=== PATIENT | female | born 1970 | race American Indian/Alaskan Native ===

== ENCOUNTER 2018-05-30 19:56 | Observation (INO) | payer OTHER ==
[2018-05-30] MEDS ORDERED: ASPIRIN PO ONE (20:08)
[2018-05-30] MEDS ORDERED: NACL 0.9% 500 ML 500 ML IV ONE (20:43)
[2018-05-30] MEDS ORDERED: NITROSTAT SL PRN (20:43)
[2018-05-30] MEDS ORDERED: PEPCID IV ONE (20:43)
[2018-05-30] MEDS ORDERED: CARAFATE PO ONE (20:43)
--- NOTE | 2018-05-30 20:44 | Emergency Department Report ---
ED Chest Pain HPI - General Chief Complaint: Chest Pain Stated Complaint: CHEST AND BACK PAIN WEAKNESS NAUSEA Time Seen by Provider: 05/30/18 20:32 Source: patient, RN notes reviewed Mode of arrival: Ambulatory Limitations: No Limitations - History of Present Illness Initial Comments: Primary care Dr.: Dr. Garcia This is a 57-year-old female with a history of hypertension, high cholesterol, on chronic aspirin therapy. The patient presents to the emergency room with a complaint of nontraumatic back pressure, pain, reported nausea, shortness of merary ath, with no vomiting, no diaphoresis, questionable chest pressure, tingling. The symptoms have been present for approximately 6 hours. They're intermittent. They do not radiate anywhere. He did not have exacerbating or relieving factors. No recent cardiac stress test. Patient had chest twitching, pain earlier on this month, saw her primary care doctor about it, was referred to outpatient cardiology but did not follow-up. The patient reports that she is not . The patient reports no DVT or pulmonary embolus risk factors. She was told last month by her primary care doctor that she had a "normal" EKG. MD Complaint: chest pain, other -: Gradual Onset: during rest Pain Location: other Pain Radiation: none Quality: aching, heaviness, sharp Consistency: intermittent Improves With: nothing Worsens With: nothing Aspirin use within the Past 7 Days: (1) Yes - Related Data On Oral Contraceptives: No Allergies Allergy/AdvReac Type Severity Reaction Status Date / Time No Known Allergies Allergy Verified 09/17/15 03:37 Heart Score - HEART Score History: Moderately suspicious EKG: Non-specific Age: 45-65 Risk factors: > 3 risk factors or hx of atherosclerotic disease Troponin: < normal limit HEART Score: 5 - Critical Actions Critical Actions: 4-6 pts:12-16.6% risk of adverse cardiac event. Should be admitted ED Review of Systems ROS: Stated complaint: CHEST AND BACK PAIN WEAKNESS NAUSEA Other details as noted in HPI Constitutional: malaise, weakness. denies: fever Eyes: denies: vision change ENT: denies: ear pain Respiratory: denies: cough Cardiovascular: chest pain Gastrointestinal: nausea Musculoskeletal: back pain Skin: denies: lesions Neurological: weakness Psychiatric: anxiety ED Past Medical Hx - Past Medical History Previous Medical History?: Yes Hx Hypertension: Yes Additional medical history: Elevated Cholesterol - Surgical History Past Surgical History?: No - Social History Smoking Status: Never Smoker ED Physical Exam - General Limitations: No Limitations General appearance: alert, anxious, obese - Head Head exam: Present: atraumatic, normocephalic - Eye Eye exam: Present: normal appearance, EOMI - ENT ENT exam: Present: normal exam, normal orophraynx, mucous membranes moist, normal external ear exam - Neck Neck exam: Present: normal inspection, full ROM. Absent: tenderness, meningismus - Respiratory Respiratory exam: Present: normal lung sounds bilaterally. Absent: respiratory distress - Cardiovascular Cardiovascular Exam: Present: regular rate, normal rhythm, normal heart sounds. Absent: bradycardia, tachycardia, irregular rhythm, systolic murmur, diastolic murmur, rubs, gallop - GI/Abdominal GI/Abdominal exam: Present: soft. Absent: distended, tenderness, guarding, rebound, rigid, pulsatile mass - Extremities Exam Extremities exam: Present: normal inspection, full ROM, other (2+ pulses noted in the bilateral upper, lower extremities. Compartments soft. No long bony tenderness. The pelvis is stable.). Absent: pedal edema, joint swelling, calf tenderness - Back Exam Back exam: Present: normal inspection, full ROM. Absent: tenderness, CVA te nderness (R), paraspinal tenderness, vertebral tenderness - Neurological Exam Neurological exam: Present: alert, other (Extraocular movements intact. Tongue midline. No facial droop. Facial sensation intact to light touch in the V1, V2, V3 distribution bilaterally. 5 and 5 strength in 4 extremities.. Sensation is intact to light touch in 4 extremities.). Absent: motor sensory deficit - Psychiatric Psychiatric exam: Present: anxious - Skin Skin exam: Present: warm, dry, intact, normal color. Absent: rash ED Course Vital Signs 05/30/18 05/30/18 05/30/18 20:04 20:26 20:30 Temperature 98.4 F Pulse Rate 82 89 Respiratory 18 20 Rate Blood Pressure 160/87 141/78 O2 Sat by Pulse 98 99 Oximetry 05/30/18 20:31 Temperature Pulse Rate Respiratory 20 Rate Blood Pressure O2 Sat by Pulse Oximetry - Reevaluation(s) Reevaluation #1: 05/30/18 21:38 Differential diagnosis, including a not limited to: GERD, gastritis, hiatal hernia, pneumonia, acute coronary syndrome, pulmonary embolus 05/30/18 21:38 Assessment and plan: 47-year-old female with back pain, nausea, shortness of breath, chest discomfort, abnormal EKG, reports normal EKG last month, no pulmonary embolus or DVT risk factors, low risk by well's criteria, perc negative with elevated d-dimer. Patient also moderate risk for major adverse cardiac events as per the heart score. We will obtain CT scan of the chest to exclude pulmonary embolus. X-ray of the chest is negative for acute disease. Clinically doubt aortic disease, has equal pulses in upper, lower extremities. Patient felt improved after initial therapy. She verbalized understanding to recommendation for admission to the hospital to complete a cardiac risk stratification, if CT scan of the chest does not show any acute process. Reevaluation #2: 05/30/18 23:05 CT scan of the chest is negative for pulmonary embolus, acute significant findings. Case is presented to the Hospital physician, Dr. Serge Alejandro, who has accepted the patient to the medical service. OSCAR score - Oscar Score Age > 65: (0) No Aspirin use within the Past 7 Days: (1) Yes 3 or more CAD Risk Factors: (1) Yes 2 or more Angina events in past 24 hrs: (1) Yes Known CAD with more than 50% Stenosis: (0) No Elevated Cardiac Markers: (0) No ST Deviation Greater than 0.5mm: (0) No OSCAR Score: 3 ED Medical Decision Making - Lab Data Result diagrams: 05/30/18 20:44 05/30/18 20:44 Vital Signs 05/30/18 05/30/18 05/30/18 20:04 20:26 20:30 Temperature 98.4 F Pulse Rate 82 89 Respiratory 18 20 Rate Blood Pressure 160/87 141/78 O2 Sat by Pulse 98 99 Oximetry 05/30/18 20:31 Temperature Pulse Rate Respiratory 20 Rate Blood Pressure O2 Sat by Pulse Oximetry Lab Results 05/30/18 05/30/18 05/30/18 Range/Units 20:44 20:44 20:44 WBC 6.1 (4.5-11.0) K/mm3 RBC 4.39 (3.65-5.03) M/mm3 Hgb 11.7 (10.1-14.3) gm/dl Hct 35.5 (30.3-42.9) % MCV 81 (79-97) fl MCH 27 L (28-32) pg MCHC 33 (30-34) % RDW 16.1 H (13.2-15.2) % Plt Count 253 (140-440) K/mm3 Lymph % (Auto) 32.2 (13.4-35.0) % [place] % (Auto) 9.2 H (0.0-7.3) % Eos % (Auto) 1.6 (0.0-4.3) % Baso % (Auto) 0.9 (0.0-1.8) % Lymph # 2.0 (1.2-5.4) K/mm3 [place] # 0.6 (0.0-0.8) K/mm3 Eos # 0.1 (0.0-0.4) K/mm3 Baso # 0.1 (0.0-0.1) K/mm3 Seg Neutrophils % 56.1 (40.0-70.0) % Seg Neutrophils # 3.4 (1.8-7.7) K/mm3 PT 12.3 (12.2-14.9) Sec. INR 0.87 (0.87-1.13) APTT 26.5 (24.2-36.6) Sec. D-Dimer 266.30 H (0-234) ng/mlDDU Sodium 142 (137-145) mmol/L Potassium 3.9 (3.6-5.0) mmol/L Chloride 104.4 (98-107) mmol/L Carbon Dioxide 28 (22-30) mmol/L Anion Gap 14 mmol/L BUN 14 (7-17) mg/dL Creatinine 0.7 (0.7-1.2) mg/dL Estimated GFR > 60 ml/min BUN/Creatinine Ratio 20 % Glucose 131 H (65-100) mg/dL Calcium 8.8 (8.4-10.2) mg/dL Troponin T < 0.010 (0.00-0.029) ng/mL HCG, Quant (0-4) mIU/mL 05/30/18 Range/Units 20:44 WBC (4.5-11.0) K/mm3 RBC (3.65-5.03) M/mm3 Hgb (10.1-14.3) gm/dl Hct (30.3-42.9) % MCV (79-97) fl MCH (28-32) pg MCHC (30-34) % RDW (13.2-15.2) % Plt Count (140-440) K/mm3 Lymph % (Auto) (13.4-35.0) % [place] % (Auto) (0.0-7.3) % Eos % (Auto) (0.0-4.3) % Baso % (Auto) (0.0-1.8) % Lymph # (1.2-5.4) K/mm3 [place] # (0.0-0.8) K/mm3 Eos # (0.0-0.4) K/mm3 Baso # (0.0-0.1) K/mm3 Seg Neutrophils % (40.0-70.0) % Seg Neutrophils # (1.8-7.7) K/mm3 PT (12.2-14.9) Sec. INR (0.87-1.13) APTT (24.2-36.6) Sec. D-Dimer (0-234) ng/mlDDU Sodium (137-145) mmol/L Potassium (3.6-5.0) mmol/L Chloride (98-107) mmol/L Carbon Dioxide (22-30) mmol/L Anion Gap mmol/L BUN (7-17) mg/dL Creatinine (0.7-1.2) mg/dL Estimated GFR ml/min BUN/Creatinine Ratio % Glucose (65-100) mg/dL Calcium (8.4-10.2) mg/dL Troponin T (0.00-0.029) ng/mL HCG, Quant < 2 (0-4) mIU/mL - EKG Data -: EKG Interpreted by Me EKG shows normal: sinus rhythm Rate: normal - EKG Data When compared to previous EKG there are: previous EKG unavailable 05/30/18 21:40 Normal sinus, 77 bpm, normal axis, QTC 448 ms, right bundle branch block, low voltages in the lateral leads, this is an abnormal EKG, there is no prior comparison, this is not consistent with ST elevation myocardial infarction. - Radiology Data Radiology results: report reviewed, image reviewed interpreted by me: Print Report Referring Physician: PARIS LUNA Patient Name: DANIELITO SAUCEDA Date of : 1970 Sex: Female Report Date: 2018-05-30 Report Status: Finalized Findings [facility] [address] [place] [address] Cat Scan Report Signed Patient: DANIELITO SAUCEDA MR#: [id number] 3 : 1970 Acct:[id number] Age/Sex: 47 / F ADM Date: 05/30/18 Loc: ED Attending Dr: Ordering Physician: PARIS LUNA MD Date of Service: 05/30/18 Procedure(s): CT angio chest Accession Number(s): [id number] cc: PARIS LUNA MD PROCEDURE: CT ANGIO CHEST TECHNIQUE: Computerized tomographic angiography of the chest was performed after the IV injection of iodinated nonionic contrast including image processing. The image data was postprocessed using 2-dimensional multiplanar reformatted (MPR) and 3-dimensional (MIP and/or volume rendered) techniques. Automated exposure control, adjustment of mA and/or kV according to patient size, or iterative reconstruction dose optimization techniques were utilized. CT DOSE LENGTH PRODUCT: 732.5 mGycm HISTORY: cp sob rbbb COMPARISONS: None . FIN DINGS: Bilateral pulmonary arteries and their branches demonstrate normal opacification without filling defects. Aorta is of normal caliber without evidence of dissection or aneurysm formation. Thyroid demonstrates normal size and density. Hilar structures are within normal limits. There is no lymph adenopathy. Cardiac size is within normal limits. There is a small hiatal hernia. A small subpleural nodule is noted involving the right middle lobe measuring 4 mm as seen in image 48 of series 2 located adjacent to the horizontal fissure. Pleural spaces are clear. Vertebral height is normal. IMPRES SO: No acute pulmonary process 4 mm subpleural nodule right middle lobe. A 3-6 month follow-up study is recommended. Small hiatal hernia This document is electronically signed by Mickie Lemus MD., May 30 2018 10:31:25 PM ET Transcribed By: [facility] [place]ictated By: MICKIE LEMUS Electronically Authenticated By: MICKIE LEMUS Signed Date/Time: 05/30/18 223 X-ray of the chest is negative for acute disease. Critical care attestation.: If time is entered above; I have spent that time in minutes in the direct care of this critically ill patient, excluding procedure time. ED Disposition Clinical Impression: RBBB (right bundle branch block) Chest pain Qualifiers: Chest pain type: other chest pain Qualified Code(s): R07.89 - Other chest pain Disposition: OP ADMIT IP TO THIS HOSP Is pt being admited?: Yes Does the pt Need Aspirin: Yes Condition: Stable Instructions: Chest Pain (ED) Referrals: PRIMARY CARE, [Primary Care Provider] - 3-5 Days
--- NOTE | 2018-05-30 20:54 | XRay Report ---
PROCEDURE: XR CHEST 1V AP TECHNIQUE: Chest radiograph single view. HISTORY: Chest Pain COMPARISONS: None . FINDINGS: Heart: Normal. Mediastinum/Vessels: Normal. Lungs/Pleural space: Normal. Bony thorax: No acute osseous abnormality. Life support devices: None. IMPRESSION: No acute cardiopulmonary abnormality. This document is electronically signed by Gurmeet Lemus MD., May 30 2018 08:52:36 PM ET
[2018-05-30 20:58] LABS: Basophils # (Auto) 0.1 K/mm3 (0.0-0.1); Basophils % (Auto) 0.9 % (0.0-1.8); Eosinophils # (Auto) 0.1 K/mm3 (0.0-0.4); Eosinophils % (Auto) 1.6 % (0.0-4.3); Hematocrit 35.5 % (30.3-42.9); Hemoglobin 11.7 gm/dl (10.1-14.3); Lymphocytes % (Auto) 32.2 % (13.4-35.0); Mean Corpuscular HGB Conc 33 % (30-34); Mean Corpuscular Volume 81 fl (79-97); Monocytes # (Auto) 0.6 K/mm3 (0.0-0.8); Monocytes % (Auto) 9.2 % (0.0-7.3); Platelet Count 253 K/mm3 (140-440); Red Blood Count 4.39 M/mm3 (3.65-5.03); Red Cell Distribution Width 16.1 % (13.2-15.2)
[2018-05-30 21:08] LABS: INR 0.87 (0.87-1.13)
[2018-05-30 21:09] LABS: Partial Thromboplastin Time 26.5 Sec. (24.2-36.6)
[2018-05-30 21:17] LABS: BUN/Creatinine Ratio 20; Blood Urea Nitrogen 14 mg/dL (7-17); Calcium 8.8 mg/dL (8.4-10.2); Hemolysis Index 3
--- NOTE | 2018-05-30 22:33 | Cat Scan Report ---
PROCEDURE: CT ANGIO CHEST TECHNIQUE: Computerized tomographic angiography of the chest was performed after the IV injection of iodinated nonionic contrast including image processing. The image data was postprocessed using 2-di mensional multiplanar reformatted (MPR) and 3-dimensional (MIP and/or volume rendered) techniques. Au tomated exposure control, adjustment of mA and/or kV according to patient size, or iterative reconstr uction dose optimization techniques were utilized. CT DOSE LENGTH PRODUCT: 732.5 mGycm HISTORY: cp sob rbbb COMPARISONS: None . FINDINGS: Bilateral pulmonary arteries and their branches demonstrate normal opacification without filling defe cts. Aorta is of normal caliber without evidence of dissection or aneurysm formation. Thyroid demonst rates normal size and density. Hilar structures are within normal limits. There is no lymphadenopathy . Cardiac size is within normal limits. There is a small hiatal hernia. A small subpleural nodule is noted involving the right middle lobe measuring 4 mm as seen in image 48 of series 2 located adjacent to the horizontal fissure. Pleural spaces are clear. Vertebral height is normal. IMPRESSION: No acute pulmonary process 4 mm subpleural nodule right middle lobe. A 3-6 month follow-up study is recommended. Small hiatal hernia This document is electronically signed by Gurmeet Lemus MD., May 30 2018 10:31:25 PM ET
[2018-05-31] MEDS ORDERED: MORPHINE IV PRN (00:16)
[2018-05-31] MEDS ORDERED: TYLENOL PO PRN (00:18)
[2018-05-31] MEDS ORDERED: ZOFRAN IV PRN (00:18)
[2018-05-31] MEDS ORDERED: APRESOLINE IV PRN (00:28)
--- NOTE | 2018-05-31 01:02 | History and Physical Report ---
CHIEF COMPLAINT: Chest. HISTORY OF PRESENT ILLNESS: The patient is a 47-year-old female, who presented to the Emergency Room with complaint of retrosternal chest pain, which the patient described as pressure-like in nature and has been going on for about 6 hours. The pain is associated with shortness of breath and nausea with no vomiting. There is also history of diaphoresis with no history of dizziness. Pain does not radiate and is not affected by movement or breathing. The patient said that she had some chest twitching earlier on this month and so her primary care doctor, referred her to a safety representative, which she did not follow up with. PAST MEDICAL HISTORY: Pertinent for hypertension, high cholesterol, borderline diabetes mellitus, obesity. PAST SURGICAL HISTORY: Unremarkable. FAMILY HISTORY: Family history is noncontributory. SOCIAL HISTORY: The patient does not smoke, does not drink alcohol and does not use illicit drugs. MEDICATIONS: The patient's home medications are not known at this time. ALLERGIES: There are no known drug allergies. REVIEW OF SYSTEMS: CONSTITUTIONAL: There is no fever, no chills. Diaphoresis is present. HEENT: There is no headache or sore throat. CARDIOVASCULAR SYSTEM: Chest pain is present. There is no orthopnea. RESPIRATORY SYSTEM: There is shortness of breath and no cough. GASTROINTESTINAL SYSTEM: There is nausea, but no vomiting, no abdominal pain, diarrhea or constipation. NEUROLOGIC SYSTEM: There is no numbness, no dizziness. No altered mental status. MUSCULOSKELETAL SYSTEM: There is no joint pain or swelling. DERMATOLOGICAL SYSTEM: There is no skin rash or itching. GENITOURINARY SYSTEM: There is no dysuria, hematuria or flank pain. Rest of system review is normal. PHYSICAL EXAMINATION: GENERAL: At the time of exam, the patient was found to be alert, oriented x 3, not in acute distress. VITAL SIGNS: At the initial time of presentation showed temperature of 98.4 degrees Fahrenheit, pulse of 82, respiration 18, blood pressure 160/87, O2 sat of 98% on room air. HEENT: Show pupils to be equal, round, reactive to light and accommodating. Extraocular muscles are intact. NECK: Supple with no JVD or carotid bruit. CARDIOVASCULAR SYSTEM: Showed normal first and second heart sounds with no gallops or murmurs. RESPIRATORY SYSTEM: Show good air entry on both sides of the lungs with no abnormal breath sounds. GASTROINTESTINAL SYSTEM: Shows abdomen to be full, soft, nontender with no organomegaly or rigidity. NEUROLOGICAL: Shows no focal deficit. MUSCULOSKELETAL SYSTEM: Show no joint swelling or tenderness. DERMATOLOGICAL SYSTEM: Show no skin rash. GENITOURINARY SYSTEM: Showing no costovertebral angle tenderness. PERTINENT LABORATORY DATA AND IMAGING STUDIES: The patient had chest x-ray done that shows no acute cardiopulmonary lesion and also the patient has CT angiogram of the chest done because of symptome of chest pain and elevated D-dimer and it shows no acute pulmonary embolism. There is finding of 4 mm subpleural nodule in the right middle lobe and a 3-6 months follow up studies recommended. There is finding of also a small hiatal hernia. Lab results, the patient has CBC done that was unremarkable except for elevated monocyte count of 9.2% on CBC differential. The patient's coagulation studies show elevated D-dimer of 260 that lead to the ordering of CT angiogram. The patient's chemistry was unremarkable. Troponin level came back negative and serum test was negative. DIAGNOSES: 1. Chest pain. 2. Hypertension. PLAN OF CARE: 1. The patient will be to admitted to telemetry. 2. The patient will have serial cardiac enzymes involving troponin, total CK and CK-MB checked every 6 hours x 2 more level. 3. The patient will be on aspirin 325 mg by mouth daily. 4. The patient will on nitro paste half inch to anterior chest wall q.i.d. 5. The patient will be on IV morphine 2 mg every 3 hours as needed for pain and IV Zofran 4 mg every 8 hours as needed for nausea and vomiting. 6. The patient will be on Tylenol 650 mg by mouth every 4 hours for fever and headache and aspirin 325 mg by mouth daily. 7. The patient will be on nitro past 0.5 or half inch topically q.i.d. and will be on Nitrostat 0.4 mg sublingual every 5 minutes as needed for breakthrough chest pain. 8. The patient will be on IV hydralazine 10 mg every 4 hours as needed for elevated blood pressure of 160/90 or more. 9. The patient will be on heparin 5000 units subcutaneous q. 12 hours for DVT prophylaxis. 10. The patient will be on oxygen by nasal cannula at 2 liter per minute. 11. The patient will be n.p.o. for Lexiscan stress test in the morning. JOB# [id number] OCN/ARI YODER
[2018-05-31] MEDS: NITRO-BID 2% TP SCH ×4 (06:38→17:32)
[2018-05-31 07:37] LABS: Creatine Kinase MB 1.7 ng/mL (0.0-4.0)
--- NOTE | 2018-05-31 11:34 | Progress Note ---
Assessment and Plan Assessment and plan: Patient is a 47 yo woman with a history of hypertension and dyslipidemia who presented with chest pains, back pains and sob. * CTA chest IMPRESSION: No acute pulmonary process 4 mm subpleural nodule right middle lobe. A 3-6 month follow-up study is recommended. Small hiatal hernia -Chest pains, left sided, atypical: stress test pending -Elevated D-dimer, negative cta chest for pe, nonspecific, no further workup -RML 4mm lung nodule, nonsmoker: counseling done, she agreed to repeat CT scan in 3 months -Hypertension: low salt diet, treat with antihypertensive -Obesity, bmi 38: lifestyle modification full code Dvt/GI ppx home reconciliation not done, I have asked the nurse to enter meds into EMR stress test tomorrow, not done on Friday. History Interval history: Patient was seen and examined. Follow-up on current diagnosis, chest pains. Overnight uneventful. Patient denies any chest pain, shortness breath, nausea/vomiting or severe headaches. Imaging, nursing note, chart, labs and old chart reviewed. Discussed with patient. Hospitalist Physical - Physical exam Narrative exam: Gen: WDWN, NAD, Awake, Alert, Orientated HEENT: NCAT, EOMI, PERRL, OP Clear Neck: supple, no adenopathy, no thyromegaly, no JVD CVS/Heart: RRR, normal S1S2, pulses present bilaterally Chest/Lungs: CTA B, Symmetrical chest expansion, good air entry bilaterally GI/Abdomen: soft, NTND, good bowel sounds, no guarding or rebound /Bladder: no suprapubic tenderness, no CVA or paraspinal tenderness Extermity/Skin: no c/c/e, no obvious rash MSK: FROM x 4 Neuro: CN 2-12 grossly intact, no new focal deficits Psych: calm - Constitutional Vitals: Temp Pulse Resp BP Pulse Ox 98.4 F 64 16 120/53 96 05/31/18 10:00 05/31/18 10:00 05/31/18 10:00 05/31/18 10:00 05/31/18 10:00 Results - Labs CBC & Chem 7: 05/30/18 20:44 05/30/18 20:44 Labs: Laboratory Last Values WBC 6.1 K/mm3 (4.5-11.0) 05/30/18 20:44 RBC 4.39 M/mm3 (3.65-5.03) 05/30/18 20:44 Hgb 11.7 gm/dl (10.1-14.3) 05/30/18 20:44 Hct 35.5 % (30.3-42.9) 05/30/18 20:44 MCV 81 fl (79-97) 05/30/18 20:44 MCH 27 pg (28-32) L 05/30/18 20:44 MCHC 33 % (30-34) 05/30/18 20:44 RDW 16.1 % (13.2-15.2) H 05/30/18 20:44 Plt Count 253 K/mm3 (140-440) 05/30/18 20:44 Lymph % (Auto) 32.2 % (13.4-35.0) 05/30/18 20:44 [place] % (Auto) 9.2 % (0.0-7.3) H 05/30/18 20:44 Eos % (Auto) 1.6 % (0.0-4.3) 05/30/18 20:44 Baso % (Auto) 0.9 % (0.0-1.8) 05/30/18 20:44 Lymph # 2.0 K/mm3 (1.2-5.4) 05/30/18 20:44 [place] # 0.6 K/mm3 (0.0-0.8) 05/30/18 20:44 Eos # 0.1 K/mm3 (0.0-0.4) 05/30/18 20:44 Baso # 0.1 K/mm3 (0.0-0.1) 05/30/18 20:44 Seg Neutrophils % 56.1 % (40.0-70.0) 05/30/18 20:44 Seg Neutrophils # 3.4 K/mm3 (1.8-7.7) 05/30/18 20:44 PT 12.3 Sec. (12.2-14.9) 05/30/18 20:44 INR 0.87 (0.87-1.13) 05/30/18 20:44 APTT 26.5 Sec. (24.2-36.6) 05/30/18 20:44 D-Dimer 266.30 ng/mlDDU (0-234) H 05/30/18 20:44 Sodium 142 mmol/L (137-145) 05/30/18 20:44 Potassium 3.9 mmol/L (3.6-5.0) 05/30/18 20:44 Chloride 104.4 mmol/L (98-107) 05/30/18 20:44 Carbon Dioxide 28 mmol/L (22-30) 05/30/18 20:44 Anion Gap 14 mmol/L 05/30/18 20:44 BUN 14 mg/dL (7-17) 05/30/18 20:44 Creatinine 0.7 mg/dL (0.7-1.2) 05/30/18 20:44 Estimated GFR > 60 ml/min 05/30/18 20:44 BUN/Creatinine Ratio 20 % 05/30/18 20:44 Glucose 131 mg/dL (65-100) H 05/30/18 20:44 Calcium 8.8 mg/dL (8.4-10.2) 05/30/18 20:44 Total Creatine Kinase 157 units/L (30-135) H 05/31/18 06:51 CK-MB (CK-2) 1.7 ng/mL (0.0-4.0) 05/31/18 06:51 CK-MB (CK-2) Rel Index 1.0 (0-4) 05/31/18 06:51 Troponin T < 0.010 ng/mL (0.00-0.029) 05/31/18 06:51 HCG, Quant < 2 mIU/mL (0-4) 05/30/18 20:44 Active Medications - Current Medications Current Medications: Generic Name Dose Route Start Last Admin Trade Name Freq PRN Reason Stop Dose Admin Acetaminophen 650 mg 05/31/18 00:18 Tylenol PO Q4H PRN Headache Aspirin 325 mg 05/31/18 10:00 Aspirin PO QDAY STEPHANIE Heparin Sodium (Porcine) 5,000 unit 05/31/18 10:00 Heparin SUB-Q Q12HR [facility] Hydralazine HCl 10 mg 05/31/18 00:28 Apresoline IV Q4HR PRN Blood Pressure Morphine Sulfate 2 mg 05/31/18 00:16 Morphine IV Q3H PRN Pain, Moderate (4-6) Nitroglycerin 0.4 mg 05/30/18 20:43 Nitrostat SL .Q5MIN PRN Chest Pain Nitroglycerin 0.5 inch 05/31/18 06:00 05/31/18 06:38 Nitro-Bid 2% TP Not Given QIDNTG [facility] Protocol Ondansetron HCl 4 mg 05/31/18 00:18 Zofran IV Q8H PRN Nausea And Vomiting
[2018-05-31] MEDS ORDERED: NACL 0.9% 1000 ML 1,000 ML IV ONE (11:36)
[2018-05-31] MEDS ORDERED: LISINOPRIL PO SCH (11:45)
[2018-05-31] MEDS ORDERED: NON-FORMULARY (Omeprazole [Omeprazole] 20 MG) PO SCH (11:45)
[2018-05-31] MEDS ORDERED: HYDROCHLOROTHIAZIDE PO SCH (11:45)
[2018-05-31 13:50] LABS: Creatine Kinase MB 1.4 ng/mL (0.0-4.0)
[2018-05-31] MEDS: ASPIRIN PO SCH (14:05)
[2018-05-31] MEDS: PROTONIX PO SCH (14:05)
[2018-05-31] MEDS: ZESTRIL PO SCH (14:05)
[2018-05-31] MEDS: HCTZ PO SCH (14:05)
[2018-05-31] MEDS: HEPARIN SUB-Q SCH ×2 (14:05→22:35)
[2018-05-31] MEDS: LOPRESSOR PO SCH (22:35)
[2018-06-01] MEDS: NITRO-BID 2% TP SCH ×3 (05:36→14:14)
[2018-06-01] MEDS: HEPARIN SUB-Q SCH ×2 (08:03→12:33)
--- NOTE | 2018-06-01 10:31 | Discharge Summary ---
Providers - Providers Date of Admission: 05/30/18 23:06 Date of discharge: 06/01/18 Attending physician: CARLOS TOLBERT Primary care physician: MOTEL MANAGER Hospitalization Condition: Stable Hospital course: Patient is a 47 yo woman with a history of hypertension and dyslipidemia who presented with chest pains, back pains and sob. * CTA chest IMPRESSION: No acute pulmonary process 4 mm subpleural nodule right middle lobe. A 3-6 month follow-up study is recommended. Small hiatal hernia -Chest pains, left sided, atypical, msk/costochondritis related if stress test negative: stress test pending -Elevated D-dimer, negative cta chest for pe, nonspecific, no further workup -RML 4mm lung nodule, nonsmoker: counseling done, she agreed to repeat CT scan in 3 months -Hypertension: low salt diet, treat with antihypertensive -Obesity, bmi 38: lifestyle modification full code Dvt/GI ppx home reconciliation not done, I have asked the nurse to enter meds into EMR stress test today and if negative will discharge home, Disposition: DC TO HOME OR SELFCARE Time spent for discharge: 32 minutes Core Measure Documentation - Palliative Care Palliative Care/ Comfort Measures: Not Applicable - Core Measures Any of the following diagnoses?: none - VTE Discharge Requirements Deep Vein Thrombosis/Pulmonary Embolism Present on Admission: No Has pt received <5 days of overlap therapy or INR<2.0: No Anticoagulant overlap therapy prescribed at discharge: No Contraindication No Overlap Therapy order at DC: Not Indicated Exam - Physical Exam Narrative exam: Gen: WDWN, NAD, Awake, Alert, Orientated HEENT: NCAT, EOMI, PERRL, OP Clear Neck: supple, no adenopathy, no thyromegaly, no JVD CVS/Heart: RRR, normal S1S2, pulses present bilaterally Chest/Lungs: CTA B, Symmetrical chest expansion, good air entry bilaterally GI/Abdomen: soft, NTND, good bowel sounds, no guarding or rebound /Bladder: no suprapubic tenderness, no CVA or paraspinal tenderness Extermity/Skin: no c/c/e, no obvious rash MSK: FROM x 4 Neuro: CN 2-12 grossly intact, no new focal deficits Psych: calm - Constitutional Vitals: Temp Pulse Resp BP Pulse Ox 98.0 F 57 L 16 121/74 99 06/01/18 04:20 06/01/18 04:20 06/01/18 04:20 06/01/18 04:20 06/01/18 04:20 Plan Activity: other (no strenous activity until cleared by PCP) Diet: low salt Special Instructions: record daily BP diary Additional Instructions: -RML 4mm lung nodule, repeat CT scan chest with dye in 3 months, make an appointment with Dr. Gamboa before the 3 months and have them order the test Follow up with: PRIMARY CAREMD [Primary Care Provider] - 3-5 Days JIMI POP MD [Staff Physician] - 7 Days Prescriptions: AtorvaSTATin [Lipitor] 10 mg PO QHS #30 tablet Metoprolol [Lopressor TAB] 12.5 mg PO BID #30 tablet Lisinopril/Hydrochlorothiazide [Zestoretic 10-12.5 mg Tablet] 10 - 12.5 mg PO DAILY #30 tablet
[2018-06-01] MEDS: ASPIRIN PO SCH (11:57)
[2018-06-01] MEDS: PROTONIX PO SCH (11:57)
[2018-06-01] MEDS: LOPRESSOR PO SCH (11:59)
[2018-06-01] MEDS: ZESTRIL PO SCH (12:03)
[2018-06-01] MEDS: HCTZ PO SCH (12:03)
--- NOTE | 2018-06-01 21:02 | Treadmill Report ---
EXERCISE TREADMILL TEST ROOM NUMBER: 463. The patient underwent exercise treadmill test using Cayetano protocol on 06/01/2018. Resting EKG; sinus bradycardia, rate 55 beats per minute, right bundle-branch block. Abnormal ECG. EXERCISE TEST: The patient exercised for a total of 9 minutes on the Cayetano protocol achieving a maximum workload of 10.3 METs. Test was terminated because of fatigue. No chest pain. The patient achieved a peak heart rate of 159 beats per minute, which was 91% of the predicted maximum heart rate. The patient's peak blood pressure was 185/89. CONCLUSION: 1. Good exercise capacity. Negative test for angina. ST-T abnormalities could not be evaluated because of the preexisting right bundle-branch block with ST-T changes. 2. Appropriate heart rate and blood pressure response noted. Suggest clinical correlation. JOB# [id number] ODUGLAS/ARI
--- NOTE | 2018-06-01 23:05 | Treadmill Report ---
NUCLEAR PERFUSION SCAN REFERRING PHYSICIAN: Chapito Hook MD PROTOCOL: The patient was brought to the stress lab in postabsorptive state, given 10 mCi of technetium 99m at rest. The patient underwent rest imaging. The patient underwent treadmill stress test per standard protocol. At peak stress, the patient was given 26 mCi of technetium 99m. Shortly thereafter, the patient underwent stress imaging. Raw imaging reveals mild GI artifact. No significant motion artifact. SPECT image examined carefully in horizontal long axis, vertical long axis and short axis views. There is normal homogenous uptake of radioisotope in all reported segments. No evidence of significant fixed or reversible perfusion defects suggestive of prior infarction or ischemia. Gated wall motion reveals normal systolic thickening, calculated ejection fraction of 60%. No TID. CONCLUSIONS: 1. Normal myocardial perfusion scan without evidence of active ischemia or prior infarction. 2. Normal left ventricular systolic performance without evidence of transient ischemic dilatation or stress-induced segmental wall motion abnormalities. 3. Treadmill stress test is reported separately. JOB# [id number] SBM/NTS
[2018-06-02 17:58] VITALS: BP 148/86
== END 2018-06-01 17:20 | disposition home or self-care (01) ==
LOC: ED 19:56 → 4A 23:06
PROVIDERS: ADMIT Internal Medicine; ATTEND Internal Medicine
DX: R07.89 Other chest pain (principal); I10 Essential (primary) hypertension; E78.00 Pure hypercholesterolemia, unspecified; E66.9 Obesity, unspecified; E78.5 Hyperlipidemia, unspecified
CPT/HCPCS: 36415; 71045; 71275; 78452; 80048; 82550; 82553; 84484; 84702; 85025; 85379; 85610; 85730; 93005; 93010; 93017; 96374; 99284; A9270; A9502; G0378; J1644; J7040; Q9967